=== PATIENT | female | born 1995 | race Caucasian/White ===

== ENCOUNTER 2016-04-29 09:55 | Day surgery (SDC) | payer OTHER ==
[~2016-04-29 09:55] MED LIST: FISH OIL 11000 MG/CA PO; FLAX SEED OIL1000 M2 PO; GILDAGIA PO; VITAMIN B122500 MCG PO; VITAMIN C500 M3 PO; VITAMIN E400 UNI4 PO
== END 2016-04-29 15:10 ==
LOC: WSU 09:55 → SHSB 10:00 → ORW 11:50 → PACU 13:13 → SHSB 14:00
PROC: 0U504ZZ Destruction of Right Ovary, Percutaneous Endoscopic Approach (ICD-10-PCS; principal; 2016-04-29)
PROC: 8E0W4CZ Robotic Assisted Procedure of Trunk Region, Percutaneous Endoscopic Approach (ICD-10-PCS; 2016-04-29)
DX: N80.1 Endometriosis of ovary (principal); N80.3 Endometriosis of pelvic peritoneum; E66.01 Morbid (severe) obesity due to excess calories; Z79.899 Other long term (current) drug therapy; Z68.41 Body mass index [BMI] 40.0-44.9, adult; Z98.890 Other specified postprocedural states
CPT/HCPCS: J1170; J3010; J7030